=== PATIENT | male | born 1960 | race Caucasian/White ===

== ENCOUNTER → 2016-10-16 | Outpatient (CLI) | payer BC ==
[~2016-10-16] MED LIST: HYDR-5688 PO; LEVO50TA6 PO
== END | disposition home or self-care (01) ==
LOC: C.PATH 08:17
PROVIDERS: ATTEND Otolaryngology
DX: Q18.0 Sinus, fistula and cyst of branchial cleft (principal); J31.0 Chronic rhinitis; K11.1 Hypertrophy of salivary gland; R59.1 Generalized enlarged lymph nodes

== ENCOUNTER → 2017-05-12 | Outpatient (CLI) | payer OTHER, BC ==
[2017-05-12 12:22] LABS: BASO % 0.3 %; BASO ABS # 0.02 K/uL (0-0.2); COMPLETE YES; EOS % 6.6 %; HEMATOCRIT 46.2 % (42-52); IG% 0.3 %; LYMPH % 22.1 %; LYMPH ABS # 1.57 K/uL (1.2-3.4); MEAN CELL VOLUME 93.9 fL (80-100); MEAN CORPUSCULAR HEMOGLOBIN 31.3 pg (25-34); MEAN CORPUSCULAR HGB CONC 33.3 g/dl (32-36); MONO % 11.2 %; NEUT % 59.5 %; PLATELET COUNT 255 K/uL (130-400); RED BLOOD COUNT 4.92 M/uL (4.7-6.1); WHITE BLOOD COUNT 7.12 K/uL (4.8-10.8)
[2017-05-12 12:39] LABS: BLOOD UREA NITROGEN 12 mg/dl (7-18); BUN/CREATININE RATIO 12.3 (10-20); CALCIUM 9.2 mg/dl (8.5-10.1); CARBON DIOXIDE 31 mmol/L (21-32); CHLORIDE 103 mmol/L (98-107); GLUCOSE 108 mg/dl (70-99); POTASSIUM 4.2 mmol/L (3.5-5.1); SODIUM 140 mmol/L (136-145)
== END | disposition home or self-care (01) ==
LOC: C.CPL 09:43
PROVIDERS: ATTEND Orthopaedic Surgery
DX: G56.21 Lesion of ulnar nerve, right upper limb (principal); Z01.812 Encounter for preprocedural laboratory examination; Z01.810 Encounter for preprocedural cardiovascular examination

== ENCOUNTER → 2017-05-14 | Day surgery (SDC) | payer OTHER, BC ==
[2017-05-13 09:32] VITALS: Ht 175.3 cm; Wt 90.9 kg
[~2017-05-14] VITALS: Ht 175.3 cm; Wt 90.9 kg
[~2017-05-14] MED LIST changes: +ATROPINE SULFATE 0.1 MG/ML 5ML SYR IV PRN; +BUPIVACAINE/EPINEPHRINE 0.25% 1:200,000 30 ML VIAL ONE; +CLINDAMYCIN PHOS 150 MG/ML 2 ML VIAL IV SCH; +DEXAMETHASONE SOD INJ 4 MG/ML VIAL ONE; +EpHEDrine SULFATE INJ 50 MG/ML AMP IV PRN; +FENTANYL CITRATE INJ 50 MCG/1 ML 2 ML VIAL ONE; +GLYCOPYRROLATE INJ 0.2 MG/ML VIAL ONE; +HYDROCODONE/ACETAMOPHEN 5/325MG TAB PO PRN; +KETOROLAC TROMETHAMINE 30 MG/ML VIAL ONE; +LACTATED RINGER'S 1000ML 1,000 ML IV SCH; +LIDOCAINE HCL 2% 2 ML VIAL (20MG/ML) ONE; +MIDAZOLAM HCL 1 MG/ML 2ML VIAL ONE; +ONDANSETRON INJ 2 MG/ML 2 ML VIAL IV PRN; +ONDANSETRON INJ 2 MG/ML 2 ML VIAL ONE; +PROPOFOL IV EMULSION 10 MG/ML 20 ML VIAL IV ONE; +SODIUM CHLORIDE 0.9% 1000ML 1,000 ML IV SCH
--- NOTE | 2017-05-14 15:22 | History & Physical Bridge - [place] ---
H&P Re-Evaluation Bridge Note: I have examined the patient, reviewed the History & Physical and in the interval since the performance of the History & Physical I have noted the following changes of clinical significance: No changes noted
--- NOTE | 2017-05-14 16:39 | Discharge Instructions-SurgCtr ---
Discharge Instructions Date of Service May 14, 2017. Visit Reason for Visit: Cubital Tunnel Syndrome, Loose Body In Elbow Joint Discharge Discharge Diagnosis / Problem: SAME ABOVE Discharge Goals Goal(s): Decrease discomfort, Improve function Activity Recommendations Activity Limitations: as noted below Lifting Limitations: until after follow-up appointment Exercise/Sports Limitations: until after follow-up appointment Anesthesia . Post Anesthesia Instructions: If you have had General Anesthesia or IV Sedation: * Do not drive today. * Resume driving when surgeon permits. * Do not make important decisions or sign legal documents today. * Call surgeon for: 1. Temperature elevations greater than 101 degrees F. 2. Uncontrollable pain. 3. Excessive bleeding. 4. Persistent nausea and vomiting. 5. Medication intolerance (nausea, vomiting or rash). * For nausea and vomiting use only clear liquids such as: tea, soda, bouillon until nausea subsides, then gradually increase diet as tolerated. * If you have any concerns or questions, call your surgeon's office. If physician is unavailable and it is an emergency, call 911 or go to the nearest emergency room. . Instructions / Follow-Up Instructions / Follow-Up MEDICATIONS: * Resume previous medications unless instructed otherwise by your surgeon. * Always take pain medication on a full stomach or with food to avoid upset stomach. * Do not drink alcohol or drive while taking narcotics. * Ibuprofen or Tylenol may be taken if narcotic not needed. SPECIAL CARE INSTRUCTIONS: __ None _X_ Keep extremity elevated and iced x 48 hours; apply ice 20-30 minutes 8-10 times/day. May remove at night. _X_ Sling _X_24 hrs/day __ Remove at night __ Shoulder Immobilizer __ 24 hrs/day __ Remove at night _X_ Dressing _X_ Maintain until seen in office, may shower with plastic over site __ Remove dressings in 24-48 hours and then may shower __ Cover incisions with band-aids after showering __ Do not remove steri-strips Call physician if chills or temperature rises above 102 degrees or pain unrelieved by prescribed pain medications at . . Diet Recommendations Home Diet: no limitations Fluid Restriction: None Procedures Procedures Performed: Right Elbow Removal Loose Body And Ulnar Nerve Transposition Pending Studies Studies pending at discharge: no Work Instructions Return To Work: after follow-up Medical Emergencies . Who to Call and When: Medical Emergencies: If at any time you feel your situation is an emergency, please call 911 immediately. . Non-Emergent Contact Non-Emergency issues call your: Primary Care Provider Call Non-Emergent contact if: you have a fever . . "Provider Documentation" section prepared by Nicholas Nicholas. .
--- NOTE | 2017-05-14 16:46 | [facility] Post Operative Brief Note ---
Immediate Operative Summary Operative Date May 14, 2017. Pre-Operative Diagnosis Right Cubital Tunnel Syndrome, Loose Body in Elbow Joint Post-Operative Diagnosis Same Procedure(s) Performed Right Elbow Removal Loose Body And Ulnar Nerve Transposition Surgeon Dr. Carr Event Decorator And Designer Surgeon(s) Tamanna Nicholas PA-C Estimated Blood Loss 10 ml Findings as above Specimens None Complication(s) None Disposition Recovery Room / PACU
[2017-05-14] MEDS: FENTANYL CITRATE INJ 50 MCG/1 ML 2 ML VIAL IV PRN ×3 (16:48→17:03)
--- NOTE | 2017-05-14 17:02 | Anesthesia Progress Nt - [facility] ---
Anesthesia Post Op Note Date & Time May 14, 2017 at 17:02 Vital Signs Pain Intensity: 7 Vital Signs Past 12 Hours Date Time Temp Pulse Resp B/P (MAP) Pulse Ox O2 Delivery O2 Flow Rate FiO2 05/14/17 16:35 36.6 66 16 133/91 98 Diffusion Mask 5 05/14/17 12:22 36.7 58 22 108/68 (81) 96 Room Air Notes Mental Status: alert / awake / arousable, participated in evaluation Pt Amnestic to Procedure: Yes Nausea / Vomiting: adequately controlled Pain: adequately controlled Airway Patency, RR, SpO2: stable & adequate BP & HR: stable & adequate Hydration State: stable & adequate Anesthetic Complications: no major complications apparent
[2017-05-14 17:33] VITALS: BP 121/84; PULSE 56; O2SAT 98
--- NOTE | 2017-05-15 00:15 | OPERATIVE REPORT ---
DATE OF OPERATION: 05/14/2017 PREOPERATIVE DIAGNOSES: 1. Cubital tunnel syndrome of the right elbow. 2. Loose body of the right elbow. POSTOPERATIVE DIAGNOSES: Same. PROCEDURE: Cubital tunnel release with subcuticular ulnar nerve transposition of the right elbow with small loose body removal. SURGEON: Dr. Darwin Carr. LOBSTER FISHERMAN: Gabriel Nicholas PA-C, whose assistance was necessary for positioning the arm and helping with instrumentation. ANESTHESIA: General. COMPLICATIONS: None. CONDITION: Stable to PACU. INDICATIONS: Maximilian is a pleasant 56-year-old male who was at work and he banged his right elbow very hard against an object. He had immediate elbow pain. He had a lot of ulnar nerve symptoms as well. EMG study showed severe compression of the ulnar nerve with motor loss. He was also having trouble getting full extension of his elbow. His elbow extended to about 20 degrees. His left elbow extended to about 10 degrees. He states that his loss of motion was new since the injury. MRI of his elbow did show a small loose body in the olecranon fossa. He elected to proceed with an ulnar nerve transposition and loose body removal. On 05/14/2017, he arrived at [facility] for the above procedure. He was seen in the preoperative holding area and the operative extremity was identified and signed. He was given preoperative antibiotic and taken back to the operating room. He was then laid on the table in supine position and put under general anesthesia. The right elbow was then prepped and draped in sterile fashion. Time-out was done and the patient and operative extremity was properly identified. A curvilinear incision was made directly over the medial epicondyle. Dissection was taken down through the fascia with care not to disrupt the motor branch or the venous structures. The ulnar nerve was easily identified. Time was spent then releasing the Bermeo's fascia and completely releasing the nerve. The nerve was released up the muscular septum and then distally through the flexor pronator fascia. The nerve was completely freed up. The nerve could easily be transposed anteriorly. The nerve was controlled with a Andrea drain and hemostat was not applied to prevent traction on the nerve. Attention was then turned to the small loose body. I was able to easily go between the medial head of the triceps and the posterior humerus to do a small arthrotomy to get within the capsule to explore the olecranon fossa. A very small loose body was removed. It appeared to be a very small cartilaginous fragment. Unfortunately, this did not change the range of motion of his elbow. He still stopped at about 20 degrees of extension. It was felt that this was due to osteophyte formation within the olecranon fossa which seemed to be more chronic in nature. I did not feel it was appropriate to do separate incisions and to do an osteotomy within the olecranon fossa at this time. His median nerve was having difficulty and that was the most important aspect of this case. The wound was irrigated and a fascial sling was made. The fascial sling was then attached to the subcuticular tissue with #2 Vicryl suture. The skin was then closed with 3-0 Vicryl and a 4-0 nylon suture. He was then placed in a posterior splint, extubated, transferred to a [facility] and taken to the postanesthesia care unit in stable condition. He tolerated the procedure well. I attest to the content of the Intraoperative Record and any orders documented therein. Any exceptions are noted below. LANDON
== END | disposition home or self-care (01) ==
LOC: X.SURG 12:10
PROVIDERS: ATTEND Orthopaedic Surgery
DX: G56.21 Lesion of ulnar nerve, right upper limb (principal); M24.021 Loose body in right elbow; E66.9 Obesity, unspecified; G47.33 Obstructive sleep apnea (adult) (pediatric); Z88.1 Allergy status to other antibiotic agents; Z88.0 Allergy status to penicillin; Z90.89 Acquired absence of other organs; Z98.890 Other specified postprocedural states